=== PATIENT | male | born 1955 | race Caucasian/White ===

== ENCOUNTER 2017-04-13 13:35 | Emergency (ER) ==
[2017-04-13 13:47] VITALS: BP 165/82; TEMP 97.2; BMI 23.6
[2017-04-13 14:38] LABS: BASOPHILS % (AUTO) 0.4 % (0.0-3.0); EOSINOPHILS # (AUTO) 0.1 K/ul (0.0-0.7); EOSINOPHILS % (AUTO) 2.9 % (0.0-7.0); HEMATOCRIT 35.4 % (42.0-52.0); HEMOGLOBIN 11.6 g/dl (14.0-18.0); IMMATURE GRANULOCYTE % (AUTO) 0.2 % (0.0-5.0); LYMPHOCYTES % (AUTO) 22.2 (10.0-50.0); MEAN CORPUSCULAR HGB CONC 32.8 (31.8-35.4); MEAN CORPUSCULAR VOLUME 88.5 fl (80.0-94.0); MONOCYTES # (AUTO) 0.3 K/uL (0.4-2.0); NEUTROPHILS # (AUTO) 3.1 K/ul (2.0-6.9); NEUTROPHILS % (AUTO) 67.3; PLATELET COUNT 105 10^3/uL (140-440); WHITE BLOOD COUNT 4.55 K/ul (4.2-10.2)
[2017-04-13 15:00] LABS: PARTIAL THROMBOPLASTIN TIME 24.3 SEC (23.9-40.0); PROTHROMBIN TIME 10.2 SEC (9.3-11.0)
[2017-04-13 15:23] LABS: ALBUMIN 3.4 g/dL (3.4-5.0); ALBUMIN/GLOBULIN RATIO 1.03; ANION GAP 13.6; BILIRUBIN,TOTAL 0.41 mg/dL (0.00-1.20); BUN/CREATININE RATIO 6.47; CALCIUM 9.8 mg/dL (8.2-10.2); POTASSIUM 3.6 mmol/L (3.5-5.1); TOTAL PROTEIN 6.7 g/dL (5.8-8.1); TROPONIN I 0.031 ng/ml (0.0000-0.4000)
[2017-04-13 15:26] LABS: CREATININE 6.02 mg/dL (0.60-1.10)
--- NOTE | 2017-04-13 15:56 | ED.PDOC ---
General ED Provider: Dr. IESHA CAMERON Chief Complaint: Palpitations Stated Complaint: palpitation Time Seen by Physician: 13:45 Mode of Arrival: Walk-In Information Source: Family Exam Limitations: No limitations Nursing and Triage Documentation Reviewed and Agree: Yes Cardiovascular Complaint Exam - Palpitations Complaint/Exam Onset/Duration: 1 hr ago at dialysis Symptoms Are: Resolved Timing: Intermittent Initial Severity: Mild Current Severity: Mild Character: Reports: Irregular Aggravating: Reports: None Alleviating: Reports: None Associated Signs and Symptoms: Denies: Lightheadedness, Dizziness, Syncope, Chest pain, Shortness of breath, Diaphoresis, Nausea, Vomiting Related History: Similar episode Related Surgical History: Reports: None Cardiac Risk Factors: Reports: Hypertension (renal failure ) Pulmonary Embolism Risk Factors: Reports: None Atrial Fibrillation Risk Factors: Reports: None Differential Diagnoses: CAD, Hypokalemia, Medication induced, Other (afib) Quality Indicators for AMI: EKG in 10min. Quality Indicators for Cardiac Chest Pain: EKG in 10min. Quality Indicator For Non-Traumatic Chest Pain/Syncope: EKG Performed Review of Systems - Review Of Systems Constitutional: Reports: No symptoms Eyes: Reports: No symptoms Ears, Nose, Mouth, Throat: Reports: No symptoms Respiratory: Reports: No symptoms Cardiac: Reports: Palpitations GI: Reports: No symptoms : Reports: No symptoms Musculoskeletal: Reports: No symptoms Skin: Reports: No symptoms Neurological: Reports: No symptoms Endocrine: Reports: No symptoms Hematologic/Lymphatic: Reports: No symptoms All Other Systems: Reviewed and Negative Past Medical History - Past Medical History Previously Healthy: No Endocrine: Reports: None Cardiovascular: Reports: CAD, Hypertension, A-Fib Respiratory: Reports: None Hematological: Reports: None Gastrointestinal: Reports: None Genitourinary: Reports: CKD Neuro/Psych: Reports: None Musculoskeletal: Reports: None Cancer: Reports: None - Surgical History General Surgical History: Reports: CABG - Family History Family History: Reports: None - Social History Smoking Status: Former smoker Hx Substance Use: Yes (medicinal marijurana) Alcohol Screening: None Physical Exam - Physical Exam Appearance: Well-appearing, No pain distress, Well-nourished Eyes: BAKARI, EOMI, Conjunctiva clear ENT: Ears normal, Nose normal, Oropharynx normal Respiratory: Airway patent, Breath sounds clear, Breath sounds equal, Respirations nonlabored Cardiovascular: RRR, Pulses normal, No rub, No murmur GI/: Soft, Nontender, No masses, Bowel sounds normal, No Organomegaly Musculoskeletal: Normal strength, ROM intact, No edema, No calf tenderness Skin: Warm, Dry, Normal color Neurological: Sensation intact, Motor intact, Reflexes intact, Cranial nerves intact, Alert, Oriented Psychiatric: Affect appropriate, Mood appropriate Interpretation - Event Sales Representative Rate: Normal Rhythm: Sinus Ectopy: None - EKG Interpretation Rate: Normal Rhythm: Sinus Ectopy: None [place]: [place] ST Segment: Normal Critical Care Note - Critical Care Note Total Time (mins): 0 Course - Course Hematology/Chemistry: 04/13/17 14:25 04/13/17 14:25 Orders, Labs, Meds: Lab Review 04/13/17 14:25 WBC 4.55 RBC 4.00 L Hgb 11.6 L Hct 35.4 L MCV 88.5 MCH 29.0 MCHC 32.8 RDW Coeff of Ledy 14.2 Plt Count 105 L Immature Gran % (Auto) 0.2 Neut % (Auto) 67.3 Lymph % (Auto) 22.2 Boundary % (Auto) 7.0 Eos % (Auto) 2.9 Baso % (Auto) 0.4 Immature Gran # (Auto) 0.0 Neut # 3.1 Lymph # 1.0 Boundary # 0.3 L Eos # 0.1 Baso # 0.0 PT 10.2 INR 0.99 APTT 24.3 Sodium 142 Potassium 3.6 Chloride 99 Carbon Dioxide 33 H Anion Gap 13.6 BUN 39 H Creatinine 6.02 H* Estimated GFR (MDRD) 10.00 BUN/Creatinine Ratio 6.47 Glucose 134 H Calcium 9.8 Total Bilirubin 0.41 AST 13 L ALT 10 L Alkaline Phosphatase 102 Total Creatine Kinase 52 Troponin I 0.0310 Total Protein 6.7 Albumin 3.4 Globulin 3.3 Albumin/Globulin Ratio 1.03 TSH 2.386 Free T4 1.06 Orders Category Date Time Status EKG-(ED ONLY) Stat CARDIO 04/13/17 13:57 Completed EKG-(ED ONLY) Stat CARDIO 04/13/17 14:30 Completed ED IV/MEDIPORT/POWERPORT .ONCE EMERGENCY 04/13/17 13:57 Active CBC W/ AUTO DIFF Stat LAB 04/13/17 14:25 Completed COMPREHENSIVE METABOLIC PANEL Stat LAB 04/13/17 14:25 Completed CREATINE KINASE Stat LAB 04/13/17 14:25 Completed FREE T4 (FREE THYROXINE) Stat LAB 04/13/17 14:25 Completed PARTIAL THROMBOPLASTIN TIME Stat LAB 04/13/17 14:25 Completed PT WITH INR Stat LAB 04/13/17 14:25 Completed THYROID STIMULATING HORMONE Stat LAB 04/13/17 14:25 Completed TROPONIN I Stat LAB 04/13/17 14:25 Completed 0.9 % Sodium Chloride [Saline Flush] MEDS 04/13/17 13:56 Active 1 syr IVF PRN PRN Medications Generic Name Dose Route Start Last Admin Trade Name Freq PRN Reason Stop Dose Admin Sodium Chloride 1 syr 04/13/17 13:56 Saline Flush IVF PRN PRN To flush IV Vital Signs: Temp Pulse Resp BP Pulse Ox 04/13/17 13:36 97.2 F L 92 H 20 165/82 H 96 CHUNG Risk Score CHUNG Risk Score: Risk Score Odds of by 30D 0 0.1 (0.1-0.2) 1 0.3 (0.2-0.3) 2 0.4 (0.3-0.5) 3 0.7 (0.6-0.9) 4 1.2 (1.0-1.5) 5 2.2 (1.9-2.6) 6 3.0 (2.5-3.6) 7 4.8 (3.8-6.1) Departure - Departure Time of Disposition: 15:56 (left ama me and may discussed the need for admission riskof CVA but pt refused to be admitted ) Disposition: AMA Discharge Problem: Palpitations, Paroxysmal a-fib Instructions: A-fib (Atrial Fibrillation) (ED), Palpitations (ED) Condition: Good Pt referred to PMD for follow-up: No Additional Instructions: Please call your Family Physician as soon as possible to schedule a follow-up appointment. Allergies/Adverse Reactions: Allergies cephalexin [From Keflex] Adverse Reaction (Verified 04/13/17 13:48) povidone-iodine [From Betadine] Adverse Reaction (Verified 04/13/17 13:48) soap [From Betadine] Adverse Reaction (Verified 04/13/17 13:48) Home Medications: Ambulatory Orders Alprazolam [Xanax] 0.25 mg PO DAILY 04/13/17 Amiodarone HCl 200 mg PO DAILY 04/13/17 Aspirin [Adult Low Dose Aspirin EC] 81 mg PO DAILY 04/13/17 Furosemide [Lasix Tab] 40 mg PO QDAC 04/13/17 Hydralazine HCl 100 mg PO DIRECTED 04/13/17 Sodium Bicarbonate 325 mg PO BID 04/13/17 Disposition Discussed With: Patient
== END 2017-04-13 16:15 | disposition left against medical advice (07) ==
LOC: ED 13:35
DX: R00.2 Palpitations (principal); I48.0 Paroxysmal atrial fibrillation; I12.9 Hypertensive chronic kidney disease with stage 1 through stage 4 chronic kidney disease, or unspecified chronic kidney disease; N18.9 Chronic kidney disease, unspecified; I25.810 Atherosclerosis of coronary artery bypass graft(s) without angina pectoris; Z79.899 Other long term (current) drug therapy; Z99.2 Dependence on renal dialysis
CPT/HCPCS: 36415; 80053; 82550; 84439; 84443; 84484; 85025; 85610; 85730; 93005; 93010; 99284